=== PATIENT | male | born 1960 | race Caucasian/White ===

== ENCOUNTER → 2019-03-15 | Outpatient (CLI) | payer OTHER ==
[~2019-03-15] MED LIST: ASPIRIN325 PO; BYSTOLIC 5 MG5 M1 PO; EFFIENT10 MG PO; LIPITOR 20 MG T20 M1 PO; NITROGLYCERIN0.4 MG SL
== END ==
LOC: CAT 13:15
DX: Z13.6 Encounter for screening for cardiovascular disorders (principal); E78.00 Pure hypercholesterolemia, unspecified; I25.10 Atherosclerotic heart disease of native coronary artery without angina pectoris

== ENCOUNTER → 2020-08-23 | Outpatient (CLI) | payer OTHER | LOC: SJCVCIMAG 08-06 16:14 | PROVIDERS: ATTEND Internal Medicine Cardiovascular Disease | DX: I34.0 Nonrheumatic mitral (valve) insufficiency (principal); I25.10 Atherosclerotic heart disease of native coronary artery without angina pectoris; I10 Essential (primary) hypertension; Z98.61 Coronary angioplasty status ==

== ENCOUNTER → 2021-11-05 | Outpatient (CLI) | payer OTHER | LOC: SJCVCIMAG 07:20 | PROVIDERS: ATTEND Internal Medicine Cardiovascular Disease | DX: I25.10 Atherosclerotic heart disease of native coronary artery without angina pectoris (principal); Z82.49 Family history of ischemic heart disease and other diseases of the circulatory system ==